=== PATIENT | male | born 1995 | race Caucasian/White ===

== ENCOUNTER 2021-01-03 14:33 | Emergency (ER) | payer OTHER ==
[~2021-01-03] VITALS: Ht 182.9 cm; Wt 90.7 kg
[2021-01-03 14:38] VITALS: BP 159/100
== END 2021-01-03 15:05 | disposition left against medical advice (07) ==
LOC: M.ERS 14:33
DX: R10.9 Unspecified abdominal pain (principal); Z53.21 Procedure and treatment not carried out due to patient leaving prior to being seen by health care provider